=== PATIENT | male | born 1975 | race Caucasian/White ===

== ENCOUNTER 2025-05-03 20:47 | Emergency (ER) | payer MEDICAID ==
[~2025-05-03] VITALS: Ht 193 cm; Wt 131.5 kg
[2025-05-03 21:02] VITALS: BP 190/119; TEMP 98.5; O2SAT 97
[2025-05-03] MEDS ORDERED: SODI88SP18 BNOSTRILS (21:23)
== END 2025-05-03 21:32 | disposition home or self-care (01) ==
LOC: ER 20:50
DX: J06.9 Acute upper respiratory infection, unspecified (principal); B97.89 Other viral agents as the cause of diseases classified elsewhere; R05.9 Cough, unspecified; I10 Essential (primary) hypertension